=== PATIENT | female | born 1995 | race Caucasian/White ===

== ENCOUNTER 2017-05-04 10:50 | Emergency (ER) | payer OTHER ==
[~2017-05-04] VITALS: Ht 165.1 cm; Wt 90.7 kg
[2017-05-04 10:55] VITALS: BP 137/74
[2017-05-04 12:22] VITALS: BP 122/78
[2017-05-04] MEDS ORDERED: Acetaminophen 500mg (ES) tab ORAL ONE (12:30)
--- NOTE | 2017-05-07 13:32 | Emergency Room Report ---
History of Present Illness General Chief Complaint: Headache Source: Patient Present Illness HPI Patient is a 21-year-old female presented after having recent head injury. Patient currently had sutures placed in her forehead. She noticed a become somewhat red. The patient had been using antibiotic ointment. The patient was having persistent pain to her forehead. She had not been vomiting. She denied any progression of the headache. She states that she had continued headaches. She denied any weakness or numbness. Allergies: Coded Allergies: No Known Allergies (Unverified , 05/04/17) Patient History Past Medical History: see triage record Last Menstrual Period: 03/29/17 Reviewed Nursing Documentation: PMH: Agreed, PSxH: Agreed Nursing Documentation-PMH Past Medical History: No Stated History Review of Systems All Other Systems: negative except mentioned in HPI Physical Exam Vital Signs Date Time Temp Pulse Resp B/P (MAP) Pulse Ox O2 Delivery O2 Flow Rate FiO2 05/04/17 10:55 98.1 92 18 137/74 100 Room Air General Appearance: well appearing, no apparent distress, alert, GCS 15, non- toxic Head: normocephalic, atraumatic ENT: hearing grossly normal, normal voice Neck: full range of motion, supple Respiratory: no respiratory distress, speaking full sentences Musculoskeletal: no calf tenderness Neurologic: normal gait Psychiatric: mood/affect normal Skin: no rash, other - healing wound, no infection Medical Decision Making Diagnostic Impression: Primary Impression: Head injury Additional Impression: Contusion of face ER Course Patient presented for wound check. Differential diagnosis included was not limited to infected wound, nonhealed wound, neuroma, healed Wound. Patient's benign exam and does not appear to require any further imaging or laboratory testing at this time. The patient appears to have slight erythema the wound was then appear to be infected and it appears more like a contact dermatitis. The sutures were removed. There is no purulent drainage noted. Patient was offered CT imaging she declined.The patient is advised to follow up with primary care doctor in 1-2 days. Patient is advised to return if any worsening condition or if any changes in status that are concerning. Last Vital Signs Date Time Temp Pulse Resp B/P (MAP) Pulse Ox O2 Delivery O2 Flow Rate FiO2 05/04/17 12:22 98.1 90 16 122/78 99 Room Air Status: improved Disposition: HOME, SELF-CARE Condition: Stable Patient Instructions: Head Injury, Adult Rickey,Alexander May 07, 2017 13:32
== END 2017-05-04 12:24 | disposition home or self-care (01) ==
LOC: EMR 12:10
DX: S01.81XD Laceration without foreign body of other part of head, subsequent encounter (principal); Z48.02 Encounter for removal of sutures
CPT/HCPCS: 99283